=== PATIENT | female | born 1995 | race Two or more races ===

== ENCOUNTER 2022-03-26 00:28 | Emergency (ER) | payer OTHER ==
[~2022-03-26] VITALS: Ht 165.1 cm; Wt 113.4 kg
[2022-03-26] MEDS ORDERED: ALBUTEROL2.5 MG/3 M IH (02:57)
[2022-03-26] MEDS ORDERED: FLOVENT HFA12 G1 IH (02:57)
[2022-03-26] MEDS ORDERED: KETO10TA2 PO (02:58)
[2022-03-26] MEDS ORDERED: ZYNCOF 20-400120 ML PO (02:58)
== END 2022-03-26 03:04 ==
LOC: ER 00:28
DX: J45.901 Unspecified asthma with (acute) exacerbation (principal)

== ENCOUNTER → 2022-04-12 | Emergency (ER) | payer OTHER | END | disposition home or self-care (01) | LOC: ER 04:30 | DX: S29.011A Strain of muscle and tendon of front wall of thorax, initial encounter (principal); X50.9XXA Other and unspecified overexertion or strenuous movements or postures, initial encounter; Y93.9 Activity, unspecified; Y92.9 Unspecified place or not applicable; J45.901 Unspecified asthma with (acute) exacerbation ==

== ENCOUNTER 2022-12-11 16:09 | Emergency (ER) | payer OTHER ==
[~2022-12-11] VITALS: Ht 167.6 cm; Wt 117.9 kg
[~2022-12-11 16:09] MED LIST: ALBUTEROL2.5 MG/3 M IH; FLOVENT HFA12 G1 IH; KETO10TA2 PO; NORFLEX100MG PO; ZYNCOF 20-400120 ML PO
== END 2022-12-11 20:46 | disposition home or self-care (01) ==
LOC: ER 16:09
DX: O20.9 Hemorrhage in early pregnancy, unspecified (principal); Z3A.01 Less than 8 weeks gestation of pregnancy